=== PATIENT | female | born 1965 | race American Indian/Alaskan Native ===

== ENCOUNTER 2018-08-09 08:21 | Emergency (ER) | payer OTHER ==
[2018-08-09 08:28] VITALS: BP 151/91
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
--- NOTE | 2018-08-09 09:45 | XRay Report ---
FINAL REPORT EXAM: XR SPINE CERVICAL 2-3V HISTORY: neck pain TECHNIQUE: Three views cervical spine. PRIORS: None currently available. FINDINGS: Normal lordotic alignment. Mild disc space narrowing with grade 1 posterior subluxation C4-C5. Mild d isc space narrowing at C6-C7. Vertebral body heights are uniform. No fracture. Prevertebral soft tiss ues are unremarkable. Mild levoscoliosis of the cervicothoracic spine. No suspicious osseous lesions. No vertebral anomalie s. Lateral masses C1 are aligned with C2. IMPRESSION: Levoscoliosis. Mild degenerative disc at C4-C5 and C6-C7.
--- NOTE | 2018-08-09 09:48 | XRay Report ---
FINAL REPORT EXAM: XR SPINE THORACIC 2V HISTORY: tenderness along T2-T5 TECHNIQUE: Two views thoracic spine. PRIORS: None currently available. FINDINGS: Mild straightening of the kyphotic alignment. Vertebral body heights are uniform. No fracture. Mild d egenerative discs throughout the thoracic spine. No significant subluxation. Prevertebral soft tissue s are unremarkable. Levoscoliosis of the cervicothoracic spine. Dextroscoliosis of the mid lower thoracic spine. Mild rot atory component. No suspicious osseous lesions. No vertebral anomalies. IMPRESSION: Scoliosis and mild straightening of the normal kyphotic alignment. No fracture
== END 2018-08-09 10:20 | disposition home or self-care (01) ==
LOC: ED 08:21
DX: S16.1XXA Strain of muscle, fascia and tendon at neck level, initial encounter (principal); S46.911A Strain of unspecified muscle, fascia and tendon at shoulder and upper arm level, right arm, initial encounter; I10 Essential (primary) hypertension; F32.9 Major depressive disorder, single episode, unspecified; F17.200 Nicotine dependence, unspecified, uncomplicated; Z88.2 Allergy status to sulfonamides; V49.59XA Passenger injured in collision with other motor vehicles in traffic accident, initial encounter; Y93.89 Activity, other specified; Y92.488 Other paved roadways as the place of occurrence of the external cause; Y99.8 Other external cause status
CPT/HCPCS: 72040; 72070

== ENCOUNTER 2020-07-11 07:17 | Emergency (ER) | payer SELFPAY ==
--- NOTE | 2020-07-11 07:56 | Event Note ---
ED Screening Note Date of service: 07/11/20 Time: 07:55 ED Screening Note: Patient complains of constipation, abdominal pain, and chest pain x2 weeks States she is having small bowel movements every 3 days Admits to history of 2 previous abdominal surgeries This initial assessment/diagnostic orders/clinical plan/treatment(s) is/are subject to change based on patients health status, clinical progression and re- assessment by fellow clinical providers in the ED. Further treatment and workup at subsequent clinical providers discretion. Patient/guardian urged not to elope from the ED as their condition may be serious if not clinically assessed and managed. Initial orders include: Labs Chest x-ray EKG Abdominal x-ray
[2020-07-11 07:57] VITALS: BP 133/92
--- NOTE | 2020-07-11 09:01 | XRay Report ---
CHEST 2 VIEWS INDICATION / CLINICAL INFORMATION: chest pain. COMPARISON: 03/15/2020 FINDINGS: SUPPORT DEVICES: None. HEART / MEDIASTINUM: No significant abnormality. LUNGS / PLEURA: Improved bibasilar atelectasis. No pneumothorax. No confluent infiltrates or pleural effusions. ADDITIONAL FINDINGS: No significant additional findings. IMPRESSION: 1. No acute findings. 2. Previously noted bibasilar atelectasis has improved since 03/15/2020. Signer Name: Jack Emanuel MD Signed: 07/11/2020 8:57 AM Workstation Name: [id number]
--- NOTE | 2020-07-11 09:03 | XRay Report ---
ABDOMEN 2 VIEWS INDICATION / CLINICAL INFORMATION: constipation. COMPARISON: None available. FINDINGS: TUBES / LINES: None. BOWEL GAS PATTERN: Abundant fecal material noted throughout the colon. Nonobstructive bowel gas patte rn. FREE AIR / EXTRALUMINAL GAS: None seen. ADDITIONAL FINDINGS: Phleboliths noted in the pelvis. Surgical clip noted projecting over the area of the right SI joint. CHEST: Visualized chest shows no significant abnormality. IMPRESSION: 1. Findings consistent with provided patient history of constipation. 2. Nonobstructive bowel gas pattern. Signer Name: Jack Emanuel MD Signed: 07/11/2020 8:58 AM Workstation Name: [id number]
[2020-07-11 09:37] LABS: Eosinophils % (Auto) 2.1 % (0.0-4.3); Hematocrit 48.8 % (30.3-42.9); Hemoglobin 16.7 gm/dl (10.1-14.3); Lymphocytes % (Auto) 42.9 % (13.4-35.0); Mean Corpuscular HGB Conc 34 % (30-34); Mean Corpuscular Volume 90 fl (79-97); Monocytes % (Auto) 9.1 % (0.0-7.3); Platelet Count 261 K/mm3 (140-440); Red Blood Count 5.41 M/mm3 (3.65-5.03); Red Cell Distribution Width 12.9 % (13.2-15.2)
[2020-07-11 09:38] LABS: Basophils % (Auto) 0.6 % (0.0-1.8); Eosinophils # (Auto) 0.1 K/mm3 (0.0-0.4); Lymphocytes # (Auto) 2.4 K/mm3 (1.2-5.4); Monocytes # (Auto) 0.5 K/mm3 (0.0-0.8)
[2020-07-11 09:59] LABS: Alanine Aminotransferase 80 units/L (7-56); Albumin 4.7 g/dL (3.9-5); BUN/Creatinine Ratio 16; Blood Urea Nitrogen 18 mg/dL (7-17); Calcium 10.5 mg/dL (8.4-10.2); Hemolysis Index 30
--- NOTE | 2020-07-11 18:54 | Emergency Department Report ---
ED Abdominal Pain HPI - General Chief Complaint: Abdominal Pain Stated Complaint: VOMITTING/NO BM Time Seen by Provider: 07/11/20 07:53 Source: patient Mode of arrival: Ambulatory Limitations: No Limitations - History of Present Illness Initial Comments: Patient complains of constipation, abdominal pain, radiating to right shoulder x2 weeks. states hard firm stool x same amount of time, there is no fever no chills, no n/v. pt is tolerating po intake, states she is having small bowel movements every 3 days. Symptoms are relieved by BM, symptoms are exacerbated by movement and activity. MD Complaint: abdominal pain - Related Data Previous Rx's Medication Instructions Recorded Last Taken Type Naproxen [Naprosyn] 500 mg PO TID PRN #12 tablet 08/09/18 Unknown Rx methOCARBAMOL [Robaxin TAB] 500 mg PO BID PRN #12 tab 08/09/18 Unknown Rx Albuterol Mdi (or & Nicu Only) 2 puff IH QID PRN #1 inhalation 03/15/20 Unknown Rx [ProAir HFA Inhaler] Azithromycin [Zithromax] 500 mg PO QDAY #5 tablet 03/15/20 Unknown Rx guaiFENesin/CODEINE [Robitussin AC] 5 ml PO Q6H PRN #120 ml 03/15/20 Unknown Rx Docusate Sodium [Colace] 100 mg PO BID #30 capsule 07/11/20 Unknown Rx polyethylene glycoL 3350 [Miralax 17 gm PO BID PRN #14 packet 07/11/20 Unknown Rx 3350] Allergies Allergy/AdvReac Type Severity Reaction Status Date / Time Sulfa (Sulfonamide Allergy Rash Verified 08/09/18 08:28 Antibiotics) ED Review of Systems ROS: Stated complaint: VOMITTING/NO BM Other details as noted in HPI Constitutional: denies: chills, fever Eyes: denies: eye pain, eye discharge, vision change ENT: denies: ear pain, throat pain Respiratory: denies: cough, shortness of breath, wheezing Cardiovascular: denies: chest pain, palpitations Endocrine: no symptoms reported Gastrointestinal: abdominal pain, nausea, constipation. denies: vomiting, diarrhea, melena Genitourinary: denies: urgency, dysuria, discharge Musculoskeletal: denies: back pain, joint swelling, arthralgia Skin: denies: rash, lesions Neurological: denies: headache, weakness, paresthesias Psychiatric: denies: anxiety, depression Hematological/Lymphatic: denies: easy bleeding, easy bruising ED Past Medical Hx - Past Medical History Hx Hypertension: Yes Hx Psychiatric Treatment: Yes (Treated for depression) - Surgical History Additional Surgical History: Right ankle surgery. C section - Social History Smoking Status: Current Every Day Smoker Substance Use Type: Alcohol - Medications Home Medications: Home Medications Medication Instructions Recorded Confirmed Last Taken Type Naproxen [Naprosyn] 500 mg PO TID PRN #12 tablet 08/09/18 Unknown Rx methOCARBAMOL [Robaxin TAB] 500 mg PO BID PRN #12 tab 08/09/18 Unknown Rx Albuterol Mdi (or & Nicu Only) 2 puff IH QID PRN #1 inhalation 03/15/20 Unknown Rx [ProAir HFA Inhaler] Azithromycin [Zithromax] 500 mg PO QDAY #5 tablet 03/15/20 Unknown Rx guaiFENesin/CODEINE [Robitussin AC] 5 ml PO Q6H PRN #120 ml 03/15/20 Unknown Rx Docusate Sodium [Colace] 100 mg PO BID #30 capsule 07/11/20 Unknown Rx polyethylene glycoL 3350 [Miralax 17 gm PO BID PRN #14 packet 07/11/20 Unknown Rx 3350] ED Physical Exam - General Limitations: No Limitations General appearance: alert, in no apparent distress - Head Head exam: Present: normocephalic - Eye Eye exam: Present: normal appearance, EOMI Pupils: Present: normal accommodation - ENT ENT exam: Present: mucous membranes moist - Neck Neck exam: Present: normal inspection, full ROM. Absent: tenderness - Respiratory Respiratory exam: Present: normal lung sounds bilaterally. Absent: respiratory distress, wheezes, stridor, chest wall tenderness - Cardiovascular Cardiovascular Exam: Present: regular rate, normal rhythm, normal heart sounds. Absent: systolic murmur, diastolic murmur, rubs, gallop - GI/Abdominal GI/Abdominal exam: Present: distended (mild distention no fever no rebound no bruit, no thrill ), normal bowel sounds. Absent: tenderness, guarding, rebound, rigid, bruit, hernia - Expanded GI/Abdominal Exam Expanded GI/Abdominal exam: Absent: psoas sign, obturator sign, heel tap sign, Maza's sign, Rovsing's sign, tenderness at Mcbur[place]'s Point, ascites - Rectal Rectal exam: Present: deferred - Extremities Exam Extremities exam: Present: normal inspection, full ROM. Absent: tenderness, pedal edema - Back Exam Back exam: Present: normal inspection, full ROM. Absent: tenderness, CVA tenderness (R), CVA tenderness (L), vertebral tenderness - Neurological Exam Neurological exam: Present: alert, oriented X3, normal gait - Psychiatric Psychiatric exam: Present: normal affect - Skin Skin exam: Present: warm, dry, intact, normal color. Absent: rash ED Course Vital Signs 07/11/20 07:53 Temperature 97.8 F Pulse Rate 84 Respiratory 18 Rate Blood Pressure 133/92 O2 Sat by Pulse 97 Oximetry ED Medical Decision Making - Lab Data Result diagrams: 07/11/20 08:53 07/11/20 08:53 Labs 07/11/20 07/11/20 07/11/20 08:53 08:53 12:06 WBC 5.5 RBC 5.41 H Hgb 16.7 H Hct 48.8 H MCV 90 MCH 31 MCHC 34 RDW 12.9 L Plt Count 261 Lymph % (Auto) 42.9 H [place] % (Auto) 9.1 H Eos % (Auto) 2.1 Baso % (Auto) 0.6 Lymph # (Auto) 2.4 [place] # (Auto) 0.5 Eos # (Auto) 0.1 Baso # (Auto) 0.0 Seg Neutrophils % 45.3 Seg Neutrophils # 2.5 Sodium 134 L Potassium 3.1 L Chloride 87.2 L Carbon Dioxide 40 H Anion Gap 10 BUN 18 H Creatinine 1.1 Estimated GFR > 60 BUN/Creatinine Ratio 16 Glucose 124 H Calcium 10.5 H Total Bilirubin 0.70 AST 60 H ALT 80 H Alkaline Phosphatase 108 Troponin T < 0.010 < 0.010 Total Protein 9.0 H Albumin 4.7 Albumin/Globulin Ratio 1.1 Lipase 38 07/11/20 15:43 WBC RBC Hgb Hct MCV MCH MCHC RDW Plt Count Lymph % (Auto) [place] % (Auto) Eos % (Auto) Baso % (Auto) Lymph # (Auto) [place] # (Auto) Eos # (Auto) Baso # (Auto) Seg Neutrophils % Seg Neutrophils # Sodium Potassium Chloride Carbon Dioxide Anion Gap BUN Creatinine Estimated GFR BUN/Creatinine Ratio Glucose Calcium Total Bilirubin AST ALT Alkaline Phosphatase Troponin T < 0.010 Total Protein Albumin Albumin/Globulin Ratio Lipase - Radiology Data Radiology results: report reviewed, image reviewed Findings Reporting MD: Jack Emanuel Dictation Time: July 11, 2020 07:57 Snowboard Instructor: Not available Manager Corporate Responsibility Date: CHEST 2 VIEWS INDICATION / CLINICAL INFORMATION: chest pain. COMPARISON: 03/15/2020 FINDINGS: SUPPORT DEVICES: None. HEART / MEDIASTINUM: No significant abnormality. LUNGS / PLEURA: Improved bibasilar atelectasis. No pneumothorax. No confluent infiltrates or pleural effusions. ADDITIONAL FINDINGS: No significant additional findings. IMPRESSION: 1. No acute findings. 2. Previously noted bibasilar atelectasis has improved since 03/15/2020. Signer Name: Jack Emanuel MD Signed: 07/11/2020 7:57 AM Workstation Name: [id number] Findings Reporting MD: Jack Emanuel Dictation Time: July 11, 2020 07:58 Snowboard Instructor: Not available Manager Corporate Responsibility Date: ABDOMEN 2 VIEWS INDICATION / CLINICAL INFORMATION: constipation. COMPARISON: None available. FINDINGS: TUBES / LINES: None. BOWEL GAS PATTERN: Abundant fecal material noted throughout the colon. Nonobstructive bowel gas pattern. FREE AIR / EXTRALUMINAL GAS: None seen. ADDITIONAL FINDINGS: Phleboliths noted in the pelvis. Surgical clip noted projecting over the area of the right SI joint. CHEST: Visualized chest shows no significant abnormality. IMPRESSION: 1. Findings consistent with provided patient history of constipation. 2. Nonobstructive bowel gas pattern. Signer Name: Jack Emanuel MD Signed: 07/11/2020 7:58 AM Workstation Name: [id number] - Medical Decision Making Chest x-ray clear no opacities no infiltrates. KUB noted moderate stool throughout. This is constipation.. Will treat for same. Patient DC'd home with prescriptions for laxative of choice. And stool softener. Patient will continue to hydrate as directed. Patient will follow with PCP in 2 to 3 days. Patient is alert oriented x3 amatory with no acute distress at this time. Patient is currently tolerating p.o. intake Critical care attestation.: If time is entered above; I have spent that time in minutes in the direct care of this critically ill patient, excluding procedure time. ED Disposition Clinical Impression: Constipation Qualifiers: Constipation type: unspecified constipation type Qualified Code(s): K59.00 - Constipation, unspecified Disposition: DC- TO HOME OR SELFCARE Is pt being admited?: No Does the pt Need Aspirin: No Condition: Stable Instructions: Constipation, Adult, Rehydration, Adult, Probiotics, Abdominal Pain (ED) Prescriptions: Docusate Sodium [Colace] 100 mg PO BID #30 capsule polyethylene glycoL 3350 [Miralax 3350] 17 gm PO BID PRN #14 packet PRN Reason: Constipation Referrals: BOO GOMEZ MD [Staff Physician] - 3-5 Days
== END 2020-07-11 18:45 | disposition home or self-care (01) ==
LOC: ED 07:17
DX: K59.00 Constipation, unspecified (principal); I10 Essential (primary) hypertension; F17.200 Nicotine dependence, unspecified, uncomplicated; F32.9 Major depressive disorder, single episode, unspecified; Z79.899 Other long term (current) drug therapy; Z88.2 Allergy status to sulfonamides; Z98.890 Other specified postprocedural states
CPT/HCPCS: 36415; 71046; 74019; 80053; 83690; 84484; 85025; 93005

== ENCOUNTER 2022-01-30 09:36 | Emergency (ER) | payer BC, OTHER ==
[2022-01-30 10:24] VITALS: BP 116/71
== END 2022-01-30 12:35 | disposition left against medical advice (07) ==
LOC: ED 09:36
DX: R52 Pain, unspecified (principal); Z53.21 Procedure and treatment not carried out due to patient leaving prior to being seen by health care provider; V89.2XXA Person injured in unspecified motor-vehicle accident, traffic, initial encounter; Y93.89 Activity, other specified; Y92.89 Other specified places as the place of occurrence of the external cause; Y99.8 Other external cause status